=== PATIENT | male | born 1970 | race American Indian/Alaskan Native ===

== ENCOUNTER 2019-01-02 09:00 | Emergency (ER) | payer OTHER ==
[2019-01-02 09:10] VITALS: BP 138/93
[2019-01-02] MEDS ORDERED: IBUPROFEN 800 MG TAB PO ONE (09:32)
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
== END 2019-01-02 10:43 | disposition home or self-care (01) ==
LOC: ED 09:00
DX: S39.012A Strain of muscle, fascia and tendon of lower back, initial encounter (principal); S16.1XXA Strain of muscle, fascia and tendon at neck level, initial encounter; V89.2XXA Person injured in unspecified motor-vehicle accident, traffic, initial encounter; Y93.9 Activity, unspecified; Y92.89 Other specified places as the place of occurrence of the external cause; Y99.8 Other external cause status
CPT/HCPCS: 72040; 72100